=== PATIENT | female | born 1985 | race Hispanic/Latino ===

== ENCOUNTER 2021-02-06 16:00 | Emergency (ER) | payer SELFPAY ==
--- OUTSIDE RECORDS SUMMARY | 2021-02-06 16:03 | XMS REPORT | Continuity of Care Document ---
:1985 Author Organization [facility] t Address [facility] [place] [address] Care Team Providers Name Role Phone Unavailable Unavailable Unavailable Problems This patient has no known problems. Allergies, Adverse Reactions, Alerts This patient has no known allergies or adverse reactions. Medications This patient has no known medications. Procedures This patient has no known procedures. Results This patient has no known results.
[2021-02-06 16:56] LABS: Urine Blood 2+ (Negative); Urine Glucose Negative (Negative); Urine Protein Negative (Negative); Urine Specific Gravity >=1.030 (1.005-1.030); Urine pH 5.5 (5.0-7.0)
[2021-02-06 17:25] LABS: Urine Specific Gravity/Preg >1.030 (1.005-1.030)
[2021-02-06 19:11] LABS: ALT/SGPT 30 U/L (12-78); AST/SGOT 15 U/L (15-37); Alkaline Phosphatase 66 U/L (45-117); BUN Blood Urea Nitrogen 8 mg/dL (7-18); Bicarbonate 29 mmol/L (21-32); Bilirubin Direct < 0.1 mg/dL (0-0.2); Bilirubin Total 0.3 mg/dL (0.2-1.0); Glucose Level 73 mg/dL (74-106); Lipase 128 U/L (73-393); Potassium 3.9 mmol/L (3.5-5.1); Protein, Total 8.3 g/dL (6.4-8.2); Sodium Level 141 mmol/L (136-145)
[2021-02-06 19:12] LABS: Absolute Lymphocytes (CBC) 2.1 K/uL (0.7-4.9); Basophils % 0.7 % (0-1.3); Hematocrit 37.8 % (36.0-45.0); Lymphocytes % 21.6 % (15.3-44.8); MPV 7.1 fL (7.6-11.3); RBC Red Blood Cell Count 4.28 M/uL (3.86-4.86)
--- NOTE | 2021-02-06 20:29 | RAD REPORT ---
EXAM DESCRIPTION: US - Transvaginal Study Probe - 02/06/2021 8:14 pm CLINICAL HISTORY: Pelvic pain. COMPARISON: No comparisons FINDINGS: The uterus is normal in size, shape and echotexture. The uterus measures 7.5 cm The endometrial stripe measures 5 mm, normal. An IUD is present at the uterine fundus. The right ovary was not visualized. The left ovary measures 2.4 x 3.5 x 2.2 cm with volume of 9.8 cc. No ovarian or parovarian lesions. No adnexal masses. Vascular flow is present in the left ovary. No significant pelvic ascites. IMPRESSION: The right ovary was not visualized. The left ovary is within normal limits. An IUD is pr esent.
[2021-02-06 20:38] LABS: Urine Bacteria >50 /HPF (<20); Urine Mucus 2+ /HPF (NONE SEEN); Urine RBC <5 /HPF (NONE SEEN)
--- NOTE | 2021-02-06 20:46 | ER ---
Nurse's Notes [facility] Name: Winter Posadas Age: 35 yrs Sex: Female : 1985 Arrival Date: 02/06/2021 Time: 16:02 Bed 9 Private MD: Diagnosis: Female pelvic inflammatory disease, unspecified;Abnormal uterine and vaginal bleeding, unspecified Presentation: 02/06 16:34 Chief complaint: Patient states: pelvic pain and vaginal spotting x 5 days, COVID + sv 01/20/21. Coronavirus screen: Client denies travel out of the [place] in the last 14 days. Client reports previous positive COVID test result. Ebola Screen: No symptoms or risks identified at this time. Risk Assessment: Do you want to hurt yourself or someone else? Patient reports no desire to harm self or others. Onset of symptoms was February 01, 2021. 16:34 Method Of Arrival: Ambulatory sv 16:34 Acuity: DUSTIN 3 sv 16:36 Initial Sepsis Screen: Does the patient meet any 2 criteria? No. Patient's initial sv sepsis screen is negative. Does the patient have a suspected source of infection? No. Patient's initial sepsis screen is negative. Triage Assessment: 16:36 General: Appears in no apparent distress. uncomfortable, Behavior is calm, cooperative, sv appropriate for age. Pain: Complains of pain in abdomen. Neuro: Level of Consciousness is awake, alert, obeys commands, Gait is steady. Respiratory: Respiratory effort is even, unlabored. : Reports vaginal bleeding that is spotty. 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 - Social history:: Smoking status: . Screenin:28 Abuse screen: Denies threats or abuse. Denies injuries from another. Nutritional zb screening: No deficits noted. Tuberculosis screening: No symptoms or risk factors identified. Fall Risk None identified. Assessment: 19:27 Reassessment: Patient appears in no apparent distress at this time. Patient and/or zb family updated on plan of care and expected duration. Pain level reassessed. Patient is alert, oriented x 3, equal unlabored respirations, skin warm/dry/pink. 19:28 General: Appears in no apparent distress. Behavior is calm, cooperative, appropriate zb for age. Neuro: Level of Consciousness is awake, alert, obeys commands. Cardiovascular: Patient's skin is warm and dry. Respiratory: Airway is patent Respiratory effort is even, unlabored, Respiratory pattern is regular, symmetrical. GI: Bowel sounds present X 4 quads. Abdomen is tender to palpation in suprapubic area. Derm: Skin is intact, is healthy with good turgor. 21:44 Reassessment: Patient appears in no apparent distress at this time. Patient and/or zb family updated on plan of care and expected duration. Pain level reassessed. Patient is alert, oriented x 3, equal unlabored respirations, skin warm/dry/pink. exterminator helper used for d/c instructions. PVU. ambulated out. gait even and steady. Patient denies pain at this time. Vital Signs: 16:36 BP 153 / 80; Pulse 82; Resp 18; Temp 98.1; Pulse Ox 100% ; Weight 54.43 kg; Height 5 sv ft. 0 in. (152.40 cm); Pain 10/10; 21:43 BP 140 / 75; Pulse 84; Resp 16; Pulse Ox 100% on R/A; zb 16:36 Body Mass Index 23.44 (54.43 kg, 152.40 cm) sv ED Course: 16:02 Patient arrived in ED. as 16:34 Arm band placed on. sv 16:35 Triage completed. sv 17:51 Chilango Alston PA is PHCP. cp 17:51 Chilango Escobar MD is Attending Physician. cp 19:15 Assist provider with pelvic exam: Set up pelvic tray. Performed by Chilango feliz Specimens sent to lab. Patient tolerated well. conducted w/ STEPHANIE fuller. 19:27 Hanna Patel RN is Primary Nurse. zb 19:29 Patient has correct armband on for positive identification. Placed in gown. Bed in low zb position. Call light in reach. Pulse ox on. NIBP on. Door closed. Noise minimized. 20:14 US Transvaginal Study (Probe) In Process Unspecified. EDMS 20:45 Kaitlin Amaya MD is Referral Physician. cp 21:45 IV discontinued, intact, bleeding controlled, No redness/swelling at site. Pressure zb dressing applied. Administered Medications: 18:42 Drug: Ketorolac 15 mg Route: IVP; Site: right forearm; ld1 21:00 Follow up: Response: No adverse reaction; Pain is decreased zb 18:42 Drug: NS 0.9% 500 ml Route: IV; Rate: bolus; Site: right forearm; ld1 21:43 Follow up: Response: No adverse reaction; IV Status: Completed infusion; IV Intake: zb 500ml 21:30 Drug: Rocephin (cefTRIAXone) 1 grams Route: IV; Rate: calculated rate; Site: right zb forearm; 21:42 Follow up: Response: No adverse reaction; IV Status: Completed infusion; IV Intake: 10mlzb Intake: 21:42 IV: 10ml; Total: 10ml. zb 21:43 IV: 500ml; Total: 510ml. zb Outcome: 20:46 Discharge ordered by MD. cp 21:44 Discharged to home ambulatory. zb 21:44 Condition: stable 21:44 Discharge instructions given to patient, family, Instructed on discharge instructions, follow up and referral plans. medication usage, safe sex practices, Demonstrated understanding of instructions, follow-up care, medications, Prescriptions given X 4. 21:45 Patient left the ED. zb Signatures: Dispatcher [employer] EDHI Dorinda Vizcarra RN RN sv Martinez, Amelia as Page, Corey, PA PA cp Hanna Patel RN RN zSabrina Soares RN RN ld1
--- NOTE | 2021-02-06 20:47 | EDPHYS ---
Physician Documentation [facility] Name: Winter Posadas Age: 35 yrs Sex: Female : 1985 Arrival Date: 02/06/2021 Time: 16:02 Bed 9 Private MD: ED Physician Chilango Escobar HPI: 02/06 18:20 This 35 yrs old Female presents to ER via Ambulatory with complaints of cp covid+, Abdominal Pain, Pelvic Pain, Vaginal Bleeding. 18:20 The patient presents with abdominal pain in the lower abdomen, and pelvic area. Onset: cp The symptoms/episode began/occurred 5 day(s) ago. The symptoms radiate to lower back. Associated signs and symptoms: Pertinent positives: vaginal bleeding, pain with intercourse, Pertinent negatives: anorexia, chest pain, constipation, diarrhea, fever, vomiting. The symptoms are described as constant. Severity of pain: in the emergency department the pain is unchanged despite home interventions. Patient reports history of IUD placement 10 years ago. 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 - Social history:: Smoking status: . ROS: 18:25 Constitutional: Negative for body aches, chills, fever, poor PO intake. cp 18:25 Eyes: Negative for injury, pain, redness, and discharge. cp 18:25 ENT: Negative for ear pain, sore throat, difficulty swallowing, difficulty handling secretions. 18:25 Cardiovascular: Negative for chest pain. 18:25 Respiratory: Negative for cough, shortness of breath, wheezing. 18:25 Abdomen/GI: Positive for abdominal pain, of the suprapubic area, right lower quadrant and left lower quadrant, Negative for vomiting, diarrhea, constipation, anorexia. 18:25 Back: Positive for radiated pain, of the low back area. 18:25 : Positive for pelvic pain, vaginal bleeding, Negative for urinary symptoms. 18:25 Skin: Negative for rash. 18:25 Neuro: Negative for altered mental status, headache, weakness. 18:25 All other systems are negative. Exam: 18:30 Constitutional: The patient appears in no acute distress, alert, awake, non-toxic, well cp developed, well nourished, uncomfortable. 18:30 Head/Face: Normocephalic, atraumatic. cp 18:30 Eyes: Periorbital structures: appear normal, Conjunctiva: normal, no exudate, no injection, Sclera: no appreciated abnormality, Lids and lashes: appear normal, bilaterally. 18:30 ENT: External ear(s): are unremarkable, Nose: is normal, Mouth: Lips: moist, Oral mucosa: moist, Posterior pharynx: Airway: no evidence of obstruction, patent. 18:30 Chest/axilla: Inspection: normal, Palpation: is normal, no crepitus, no tenderness. 18:30 Cardiovascular: Rate: normal, Rhythm: regular. 18:30 Respiratory: the patient does not display signs of respiratory distress, Respirations: normal, no use of accessory muscles, no retractions, labored breathing, is not present, Breath sounds: are clear throughout, no decreased breath sounds, no stridor, no wheezing. 18:30 Abdomen/GI: Inspection: abdomen appears normal, Bowel sounds: active, all quadrants, Palpation: soft, in all quadrants, moderate abdominal tenderness, in the suprapubic area, right lower quadrant and left lower quadrant, rebound tenderness, is not appreciated, involuntary guarding, is not appreciated. 18:30 Back: pain, that is mild, of the low back area, ROM is normal. 18:30 Skin: cellulitis, is not appreciated, no rash present. 18:30 Neuro: Orientation: to person, place \T\ time. Mentation: is normal, Motor: moves all fours, strength is normal, Gait: is steady, at a normal pace, without difficulty. 19:20 : Pelvic Exam: External exam: is normal, Speculum exam: no bleeding is noted, no cp cervicitis, os that is closed, IUD string noted, no tissue in cervix is seen, no tissue in vagina is seen, bimanual exam reveals cervical motion tenderness, os that is closed, uterine tenderness, right adnexal tenderness, left adnexal tenderness, no adnexal mass on right, no adnexal mass on left, discharge, white, and blood tinged , the nurse was present for the exam, Sexual behavior: the patient is sexually active, method of control is IUD. Vital Signs: 16:36 BP 153 / 80; Pulse 82; Resp 18; Temp 98.1; Pulse Ox 100% ; Weight 54.43 kg; Height 5 sv ft. 0 in. (152.40 cm); Pain 10/10; 21:43 BP 140 / 75; Pulse 84; Resp 16; Pulse Ox 100% on R/A; zb 16:36 Body Mass Index 23.44 (54.43 kg, 152.40 cm) sv MDM: 17:52 Patient medically screened. hodan 19:00 Differential diagnosis: appendicitis, Ovarian Torsion, Pelvic Inflammatory Disease, cp Pyelonephritis, Tubal Ovarian Abcess, Ureterolithiasis, urinary tract infection. 20:45 Data reviewed: vital signs, nurses notes, lab test result(s), radiologic studies, cp ultrasound. 20:45 Counseling: I had a detailed discussion with the patient and/or guardian regarding: the cp historical points, exam findings, and any diagnostic results supporting the discharge/admit diagnosis, lab results, radiology results, the need for outpatient follow up, an OB/Gyne specialist, to return to the emergency department if symptoms worsen or persist or if there are any questions or concerns that arise at home. Response to treatment: the patient's symptoms have markedly improved after treatment. ED course: VSS. Pain improved with meds. Patient appears non-toxic. Will discharge to home for continued monitoring. RXs given, oral Metronidazole and Doxycycline. Recommend f/u with gynecology for removal of IUD. 02/06 16:56 Order name: Urine Dipstick-Ancillary; Complete Time: 17:52 EDMS 02/06 19:56 Interpretation: Normal except: UKET Trace; UBLD 2+. 02/06 17:03 Order name: Urine --Ancillary (enter results); Complete Time: 17:52 em1 02/06 18:12 Order name: Basic Metabolic Panel 02/06 18:12 Order name: CBC with Diff; Complete Time: 19:42 02/06 19:43 Interpretation: Normal except: MPV 7.1; PLT 488. 02/06 18:12 Order name: Hepatic Function 02/06 18:12 Order name: Lipase; Complete Time: 19:42 02/06 18:12 Order name: GC (GONORR/CHLAMYDIA) Probe 02/06 18:12 Order name: Urine Microscopic Only; Complete Time: 20:44 02/06 20:44 Interpretation: Normal except: UWBC 5-10; UBACT >50; SQEPI 5-10; URCRY MANY. 02/06 18:13 Order name: US Transvaginal Study (Probe); Complete Time: 20:44 02/06 18:14 Order name: Basic Metabolic Panel; Complete Time: 19:42 EDMS 02/06 19:43 Interpretation: Normal except: CL 109; GLUC 73. 02/06 18:14 Order name: Liver (Hepatic) Function; Complete Time: 19:42 EDMS 02/06 19:43 Interpretation: Normal except: TP 8.3; GLOB 4.3; A/G 0.9. 02/06 20:40 Order name: Urine Culture EDMI 02/06 20:43 Order name: Wet Prep 02/06 20:44 Order name: Wet Prep [facility] 02/06 18:12 Order name: IV Saline Lock; Complete Time: 18:42 02/06 18:12 Order name: Labs collected and sent; Complete Time: 18:42 02/06 18:12 Order name: Pelvic Exam Setup; Complete Time: 18:42 cp Administered Medications: 18:42 Drug: Ketorolac 15 mg Route: IVP; Site: right forearm; ld1 21:00 Follow up: Response: No adverse reaction; Pain is decreased zb 18:42 Drug: NS 0.9% 500 ml Route: IV; Rate: bolus; Site: right forearm; ld1 21:43 Follow up: Response: No adverse reaction; IV Status: Completed infusion; IV Intake: zb 500ml 21:30 Drug: Rocephin (cefTRIAXone) 1 grams Route: IV; Rate: calculated rate; Site: right zb forearm; 21:42 Follow up: Response: No adverse reaction; IV Status: Completed infusion; IV Intake: 10mlzb Disposition: 02/07 05:20 Co-signature as Attending Physician, Chilango Escobar MD I agree with the assessment and hodan plan of care. Disposition Summary: 02/06/21 20:46 Discharge Ordered Location: Home cp Problem: new cp Symptoms: have improved cp Condition: Stable cp Diagnosis - Female pelvic inflammatory disease, unspecified cp - Abnormal uterine and vaginal bleeding, unspecified cp Followup: cp - With: Kaitlin Amaya MD - When: 1 week - Reason: Recheck today's complaints Discharge Instructions: - Discharge Summary Sheet cp - Abnormal Uterine Bleeding cp - Pelvic Inflammatory Disease cp - Pelvic Pain, Female cp Forms: - Medication Reconciliation Form cp - Thank You Letter cp - Antibiotic Education cp - Prescription Opioid Use cp Prescriptions: - Ibuprofen 600 mg Oral Tablet - take 1 tablet by ORAL route every 6 hours As needed take with food; 30 tablet; cp Refills: 0, Product Selection Permitted - Zofran 4 mg Oral Tablet - take 1 tablet by ORAL route every 12 hours As needed; 20 tablet; Refills: 0, cp Product Selection Permitted - Doxycycline Hyclate 100 mg Oral Tablet - take 1 tablet by ORAL route every 12 hours; 20 tablet; Refills: 0, Product cp Selection Permitted - Metronidazole 500 mg Oral Tablet - take 1 tablet by ORAL route every 8 hours; 30 tablet; Refills: 0, Product cp Selection Permitted Signatures: Dispatcher [employer] Dorinda Chaudhary, RN Chilango Casillas MD MD cha Page, Corey, PA PA Hanna Fishman, RN RN Sabrina Miranda RN RN ld1
[2021-02-06] MEDS ORDERED: CEFTRIAXONE/SWI 1gm 1 GM/10 ML SYR ONE (21:31)
[2021-02-06 22:09] VITALS: TEMP 98.1; O2SAT 100
[2021-02-06 22:10] VITALS: BP 140/75
[2021-02-11 01:46] LABS: C.trachomatis RNA,TMA Not Detected (Not Detected)
== END 2021-02-06 21:45 | disposition home or self-care (01) ==
LOC: ER 16:00
DX: N73.9 Female pelvic inflammatory disease, unspecified (principal); Z86.16 Personal history of COVID-19
CPT/HCPCS: 36415; 76830; 80048; 80076; 81003; 81015; 81025; 83690; 85025; 87086; 87088; 87210; 87490; 87590; 96361; 96374; 96375; 99284; J0696